=== PATIENT | female | born 1980 | race Caucasian/White ===

== ENCOUNTER 2023-09-12 10:23 | Outpatient (OUT) | payer MEDICAID, SELFPAY ==
--- NOTE | 2023-09-12 10:26 | MM_ITS ---
Patient: COLT DEY Exam Date: 09/12/2023 : 1980 Gender:F Ordering : DR ANDREA PALMA Admission #: [id number] Family : DR MONISHA MYERS M.D. Order #: [id number] CLICK HERE TO VIEW EXAM RADIOLOGY REPORT PROCEDURE: MM TOMOSYNTHESIS SCREENING BI COMPARISON: MG MAMM SCREEN 3D SANDRA CAD, 03/10/2022. MG MAMM DX 3D LT CAD, 02/23/2021. INDICATIONS: Screening Calculator Name NCI Breast Cancer Risk Assessment Tool 5 Year Breast Cancer Risk 0.50% Lifetime Breast Cancer Risk 6.10% Personal Breast Cancer No Personal Ovarian Cancer No Treatments None Family Cancers Grandfather-maternal with throat cancer at age ~60; Grandmother-maternal with uterine cancer at age ~40. LOCATION: [facility] BREAST COMPOSITION: Heterogeneously dense,which may obscure small masses. FINDINGS: DIAGNOSTIC CATEGORY 2--BENIGN FINDING. NO CHANGE FROM COMPARISON. Scattered benign-appearing calcifications are present. Scattered benign-appearing lymph nodes are present. RIGHT BREAST: No significant suspicious finding. LEFT BREAST: No significant suspicious finding. Stable focal asymmetry upper outer quadrant, posterior breast. RECOMMENDATIONS: ROUTINE MAMMOGRAM AND CLINICAL EVALUATION IN 12 MONTHS. PLEASE NOTE: A NORMAL MAMMOGRAM DOES NOT EXCLUDE THE POSSIBILITY OF BREAST CANCER. A CLINICALLY SUSPICIOUS PALPABLE LUMP SHOULD BE BIOPSIED. Dictated by: Don Vang MD on 09/12/2023 at 11:58 Approved by: Don Vang MD on 09/12/2023 at 11:59
== END 2023-09-12 10:24 | disposition home or self-care (01) ==
LOC: MAMMO 10:23
PROVIDERS: PCP Family Medicine; Visit Provider Physician Assistant
DX: Z12.31 Encounter for screening mammogram for malignant neoplasm of breast (principal); Z80.8 Family history of malignant neoplasm of other organs or systems
CPT/HCPCS: 77063; 77067